=== PATIENT | male | born 1975 | race Caucasian/White ===

== ENCOUNTER 2022-10-28 17:40 | Emergency (ER) | payer BC ==
[2022-10-28] MEDS ORDERED: IBUPROFEN 600 MG TABLET (FP) PO ONE ×2 (17:44→18:12)
[2022-10-28 18:14] VITALS: BP 159/101; PULSE 109; RESP 18; TEMP 97.8; BMI 27.6
[2022-10-28 18:32] LABS: HEMATOCRIT 43.1 % (35.4-49); HEMOGLOBIN 14.7 G/dL (11.7-16.9); MCH 31.3 pg (25.7-33.7); MEAN PLT VOLUME 7.9 fl (7.5-11.1); PLATELET COUNT 197.8 10^3/uL (134-434); RBC 4.68 10^6/uL (4.00-5.60); RDW 13.4 % (11.9-15.9); WHITE BLOOD COUNT 6.2 10^3/uL (4.0-10.8)
[2022-10-28 18:44] LABS: INR 1.02 (0.83-1.09); PROTHROMBIN TIME (PATIENT) 11.8 SEC (9.7-13.0)
[2022-10-28 18:53] LABS: ALBUMIN 4.7 g/dl (3.4-5.0); BILIRUBIN,TOTAL 0.4 mg/dl (0.2-1); BLOOD UREA NITROGEN 14.8 mg/dl (7-18); CALCIUM 9.3 mg/dl (8.5-10.1); CREATININE 0.9 mg/dl (0.6-1.3); POTASSIUM 3.7 mmol/L (3.5-5.1); SGPT/ALT 21.6 U/L (7-52); TOT PROT 7.4 g/dl (6.4-8.2)
[2022-10-28] MEDS ORDERED: ACETAMINOPHEN INJECTION 100 ML IVPB ONE (19:54)
[2022-10-28] MEDS ORDERED: ACETAMINOPHEN 1000 MG/100 ML BAG IVPB ONE (21:02)
[2022-10-28 21:20] LABS: PLATELET ESTIMATE ADEQUATE
== END 2022-10-28 21:56 | disposition home or self-care (01) ==
LOC: FER 17:40
PROC: 3E033NZ Introduction of Analgesics, Hypnotics, Sedatives into Peripheral Vein, Percutaneous Approach (ICD-10-PCS; principal; 2022-10-28)
DX: R10.9 Unspecified abdominal pain (principal); R31.9 Hematuria, unspecified; N20.0 Calculus of kidney
CPT/HCPCS: 36415; 74176-TC; 80053; 81003; 81015; 85027; 85610; 87086; 99284-25

== ENCOUNTER 2024-01-26 08:33 | Emergency (ER) | payer BC ==
[2024-01-26 08:59] VITALS: BP 126/78; PULSE 96; RESP 20; TEMP 99.4; BMI 27.1
[2024-01-26] MEDS ORDERED: KETOROLAC TROMETHAMINE 30 MG/1 ML VIAL ONE (09:06)
[2024-01-26] MEDS ORDERED: ACETAMINOPHEN 500 MG TABLET (FP) ONE (09:06)
[2024-01-26] MEDS: ACETAMINOPHEN 500 MG TABLET (FP) PO ONE (09:14)
[2024-01-26] MEDS: KETOROLAC TROMETHAMINE 30 MG/1 ML VIAL IM ONE (09:14)
== END 2024-01-26 09:21 | disposition home or self-care (01) ==
LOC: FER 08:33
PROC: 3E0233Z Introduction of Anti-inflammatory into Muscle, Percutaneous Approach (ICD-10-PCS; principal; 2024-01-26)
DX: R50.9 Fever, unspecified (principal); R09.81 Nasal congestion; R05.9 Cough, unspecified; M79.10 Myalgia, unspecified site; J11.1 Influenza due to unidentified influenza virus with other respiratory manifestations; Z20.822 Contact with and (suspected) exposure to COVID-19
CPT/HCPCS: 0241U-QW; 99284-25

== ENCOUNTER 2024-01-27 22:04 | Emergency (ER) | payer BC, OTHER ==
[2024-01-27 22:15] VITALS: BMI 26.9
[2024-01-27] MEDS ORDERED: ACETAMINOPHEN 500 MG TABLET (FP) ONE (23:16)
[2024-01-27] MEDS: SODIUM CHLORIDE 1,000 ML IV STA (23:25)
[2024-01-27] MEDS: ACETAMINOPHEN 500 MG TABLET (FP) PO ONE (23:25)
[2024-01-28] MEDS ORDERED: AZITHROMYCIN 500 MG VIAL IVPB ONE (00:43)
[2024-01-28] MEDS ORDERED: cefTRIAXone SODIUM 1 GM VIAL ONE (00:43)
[2024-01-28 01:12] LABS: VENOUS BASE EXCESS 1.2 mmol/L (-2-2); VENOUS O2 SATURATION 32.7 % (70-80); VENOUS PCO2 45.3 mmHg (38-52); VENOUS PH 7.388 (7.310-7.410)
[2024-01-28] MEDS: SODIUM CHLORIDE 1,000 ML IV STA (01:21)
[2024-01-28] MEDS: AZITHROMYCIN IVPB 500 MG in DEXTROSE 5%-WATER - 250 ML IVPB ONE (01:22)
[2024-01-28 01:29] LABS: PH,URINE 5.5 (5.0-8.0); URINE APPEARANCE CLEAR; URINE BILIRUBIN NEGATIVE (NEGATIVE); URINE COLOR YELLOW; URINE GLUCOSE (UA) NEGATIVE (NEGATIVE); URINE KETONE TRACE (NEGATIVE); URINE LEUK ESTERASE NEGATIVE (NEGATIVE); URINE NITRITE NEGATIVE (NEGATIVE); URINE PROTEIN NEGATIVE (NEGATIVE); URINE UROBILINOGEN 0.2 mg/dL (0.2-1.0)
[2024-01-28 01:31] LABS: BASO % 0.8 % (0-2.0); EOS % 2.6 % (0-4.5); HEMATOCRIT 33.2 % (35.4-49); HEMOGLOBIN 11.3 GM/dL (11.7-16.9); LYMPH % 23.2 % (8-40); MCH 30.7 pg (25.7-33.7); MEAN CELL VOLUME 90.4 fl (80-96); MEAN PLT VOLUME 8.2 fl (7.5-11.1); MONO % 16.5 % (3.8-10.2); NEUT % 56.9 % (42.8-82.8); PLATELET COUNT 184 10^3/uL (134-434); RBC 3.67 M/mm3 (4.00-5.60); RDW 12.5 % (11.9-15.9)
[2024-01-28 01:46] LABS: POTASSIUM 4.3 mmol/L (3.5-5.1)
[2024-01-28 01:47] LABS: CALCIUM 9.1 mg/dL (8.5-10.1)
[2024-01-28 01:48] LABS: ALBUMIN 3.1 g/dl (3.4-5.0); BLOOD UREA NITROGEN 13.7 mg/dL (7-18)
[2024-01-28] MEDS: CEFTRIAXONE 1,000 MG in DEXTROSE 5%-WATER - 50 ML IVPB ONE (01:49)
[2024-01-28 01:51] LABS: CREATININE 0.8 mg/dL (0.55-1.3)
[2024-01-28 01:53] LABS: BILIRUBIN,TOTAL 0.5 mg/dL (0.2-1)
[2024-01-28 06:38] VITALS: BP 138/90; PULSE 95; RESP 18; TEMP 98.1
== END 2024-01-28 03:27 | disposition home or self-care (01) ==
LOC: FER 22:04
PROC: 3E0337Z Introduction of Electrolytic and Water Balance Substance into Peripheral Vein, Percutaneous Approach (ICD-10-PCS; 2024-01-27)
PROC: 3E03329 Introduction of Other Anti-infective into Peripheral Vein, Percutaneous Approach (ICD-10-PCS; principal; 2024-01-28)
PROC: 3E03329 Introduction of Other Anti-infective into Peripheral Vein, Percutaneous Approach (ICD-10-PCS; 2024-01-28)
PROC: 3E0337Z Introduction of Electrolytic and Water Balance Substance into Peripheral Vein, Percutaneous Approach (ICD-10-PCS; 2024-01-28)
DX: J18.9 Pneumonia, unspecified organism (principal); R50.9 Fever, unspecified; R05.9 Cough, unspecified; R00.0 Tachycardia, unspecified; Z20.822 Contact with and (suspected) exposure to COVID-19
CPT/HCPCS: 0241U-QW; 36415; 71046-TC-FY; 80053; 81003; 82803; 83605; 85025; 87040; 96361; 96365; 96368; 99284-25